=== PATIENT | male | born 1995 | race Caucasian/White ===

== ENCOUNTER 2017-08-25 17:47 | Inpatient (IN) | payer BC ==
[2017-08-25 21:11] LABS: #Basophils 0.1 thou/uL (0.0-0.2); #Lymphocytes 0.6 thou/uL (1.20-3.40); #Monocytes 0.3 thou/uL (0.11-0.59); #Neutrophils 13.9 thou/uL (1.40-6.50); %Basophils 0.5 % (0.0-1.0); %Eosinophils 0.1 % (0.0-10.0); %Lymphocytes 4.2 % (21.0-51.0); %Neutrophils 93.2 % (42.0-75.0); Hemoglobin 14.9 g/dL (14.0-18.0); Mean Corpuscular HGB CONC 33.1 g/dL (32.0-36.0); Mean Corpuscular Volume 90.7 fl (80.0-94.0); Mean Platelet Volume 6.5 fL (7.4-10.4); Platelet Count 367 thou/uL (130-400); RBC Distribution Width 11.9 % (11.5-14.5); Red Blood Cell (RBC) Count 4.96 mill/uL (4.70-6.10); White Blood Cell (WBC) Count 14.9 thou/uL (4.8-10.8)
[2017-08-25 21:27] LABS: ALT (SGPT) 32 U/L (8-55); AST (SGOT) 15 U/L (5-34); Alkaline Phosphatase 80 U/L (40-150); Anion Gap 14 mmol/L (10-20); BUN (Urea Nitrogen) 9 mg/dL (8.9-20.6); Bilirubin, Total 0.6 mg/dL (0.2-1.2); Calc. Creatinine Clearance 0 mL/min (70-130); Calcium 10.1 mg/dL (7.8-10.44); Carbon Dioxide 27 mmol/L (22-29); Chloride 98 mmol/L (98-107); Estimated GFR-MDRD Greater than 90; Glucose 118 mg/dL (70-105); Potassium 4.3 mmol/L (3.5-5.1); Sodium 135 mmol/L (136-145)
[2017-08-25] MEDS ORDERED: metroNIDAZOLE 500 MG in Premix Bag 1 BAG IVPB SCH (23:30)
[2017-08-26] MEDS ORDERED: Ondansetron ODT 4 MG TAB PO PRN (01:19)
[2017-08-26] MEDS ORDERED: Acetaminophen 325 MG TAB PO PRN (01:19)
[2017-08-26] MEDS ORDERED: Calcium Carbonate 500 MG ChewTAB PO PRN (01:19)
[2017-08-26] MEDS ORDERED: Ondansetron HCl/PF 4 MG/2 ML Vial IVP PRN (01:19)
[2017-08-26] MEDS ORDERED: Acetaminophen 650 MG Suppository PR PRN (01:19)
[2017-08-26] MEDS: Sodium Chloride 0.9% 1,000 ML IV SCH ×2 (02:01→16:20)
[2017-08-26 05:44] LABS: #Lymphocytes 0.7 thou/uL (1.20-3.40); #Monocytes 0.3 thou/uL (0.11-0.59); %Basophils 0.1 % (0.0-1.0); %Lymphocytes 5.5 % (21.0-51.0); %Monocytes 2.1 % (0.0-10.0); %Neutrophils 92.4 % (42.0-75.0); Hemoglobin 13.2 g/dL (14.0-18.0); Mean Corpuscular HGB CONC 33.7 g/dL (32.0-36.0); Mean Corpuscular Hemoglobin 30.2 pg (27.0-31.0); Mean Corpuscular Volume 89.6 fl (80.0-94.0); Mean Platelet Volume 6.6 fL (7.4-10.4); Platelet Count 299 thou/uL (130-400); RBC Distribution Width 11.8 % (11.5-14.5); Red Blood Cell (RBC) Count 4.38 mill/uL (4.70-6.10); White Blood Cell (WBC) Count 11.9 thou/uL (4.8-10.8)
--- NOTE | 2017-08-26 05:56 | HP-2 ---
DATE OF ADMISSION: 08/26/2017 CODE STATUS: FULL PRIMARY CARE PHYSICIAN: in [place]. ATTENDING: Kylee Qureshi M.D. RESIDENT: Dr. Alexis Mehta, PGY1. SPECIALIST: He sees Dr. Ton Post, GI. CHIEF COMPLAINT: Crohn's flare. HISTORY OF PRESENT ILLNESS: This is a 22-year-old that has been having a little bit of an acute Croh n's flare over the last month. He currently sees Dr. Post, who has been managing this for the last few years. Dr. Post said that he was on Remicade for a long time, but recently in March had been switched over to antiviral as the Remicade was no longer working for him. Over the last month, he i s kind of being getting worse, having a little bit increased pain with eating and having episodes of diarrhea. He had recently been put on prednisone over [place] break to help with the flare, it was helping some. He was not doing a whole lot over [place] break and lying down helped them. He rec ently increased prednisone about 2 weeks ago with helping some, but not much and then just last y was put on Flagyl and Cipro orally. He still has not been getting better. He is still passing gas , just yesterday had an episode of 7 loose stools. Denies any other chest pain, nausea, vomiting. D enies any constipation. Denies any other rashes, itching. Denies any shortness of breath. Denies a ny other symptoms at this time. REVIEW OF SYSTEMS: All review of systems not listed in the HPI, otherwise negative at this time. PAST MEDICAL HISTORY: Crohn's diagnosed back in 2008. PAST SURGICAL HISTORY: None. ALLERGIES: No known drug allergies. MEDICATIONS: Currently takes Entyvio, which is a monthly shot right now. He was taking prednisone. He is taking Flagyl and Cipro. FAMILY HISTORY: Dad has Crohn's. Mom insignificant. SOCIAL HISTORY: Occasionally smokes cigars, occasionally drinks alcohol. No illicit drug use. PHYSICAL EXAMINATION: VITAL SIGNS: Blood pressure is 131/85, pulse is 69, respirations 16. Temperature is 98.2, pulse ox is 97% on room air. Current weight is 54.43 kilograms. GENERAL: He is alert and oriented x3, well-developed, a little thin, appropriately interactive. HEENT: Conjunctivae within normal limits. NECK: Supple, no lymphadenopathy, no thyromegaly. CARDIOVASCULAR: Regular rate and rhythm, no murmurs, no gallops. Radial pulses, pedal pulses palpat ed bilaterally. RESPIRATORY: Normal breathing effort, no retractions. LUNGS: Clear to auscultation bilaterally. SKIN: Warm, dry, no rashes or lesions noted. ABDOMEN: Soft, nontender to palpation. Bowel sounds in all 4 quadrants. No masses or distention. EXTREMITIES: No edema, no pitting. MUSCULOSKELETAL: Structure within normal limits. Full range of motion. NEUROLOGIC: No focal neuro deficit. LABORATORY DATA: White blood cell count 14.9, hemoglobin 14.9, hematocrit 45, MCV is 90.7. He had 3 .2% bands, 93.2% neutrophils. Platelets were 367. Sodium is 135, potassium is 4.3, chloride was 98, bicarb was 27, BUN was 9, creatinine was 0.89, glucose was 118, calcium is 10.1, total protein 8.0, albumin 4.0, total bilirubin 0.6, AST 15, ALT 32, alkaline phosphatase 80. CRP was elevated 3.82. ASSESSMENT AND PLAN: 1. Acute Crohn's flare. We will give him IV Levaquin and IV Flagyl. We will give him IV Solu-Medro l at 20 mg q.8 hours. We will consult Dr. Post with Gastroenterology and we will follow his recomme ndations. We will give him Bentyl for gas pain. We will give him famotidine to help with any gastro esophageal reflux disease related pain. We will start him on a full liquid diet and advance the diet as tolerated. We will recheck CBC in the morning. We will get stool cultures and Clostridium diffi cile assay due to the diarrhea. Dr. Post recommended that we get imagings. We will get an abdomin al x-ray just to make sure there is no increased loop of bowel or dilated bowel at this time. We vega l continue to manage pain likely be there for a few days. 2. Deep venous thrombosis prophylaxis with the Lovenox.
[2017-08-26] MEDS: metroNIDAZOLE 500 MG in Premix Bag 1 BAG IVPB SCH ×3 (06:08→18:24)
[2017-08-26] MEDS: Enoxaparin Sodium 30 MG/0.3 ML SYRINGE SC SCH (09:16)
[2017-08-26] MEDS: Famotidine 20 MG TAB PO SCH ×2 (09:16→21:35)
[2017-08-26] MEDS: Dicyclomine 10 MG CAP PO SCH ×4 (09:16→21:35)
--- NOTE | 2017-08-26 09:16 | CON ---
DATE OF CONSULTATION: 08/26/2017 REASON FOR ADMISSION: Crohn's flare, not responding to outpatient therapy. HISTORY OF PRESENT ILLNESS: Mr. Silverman is a pleasant 22-year-old gentleman with a history of Crohn's disease, who was diagnosed about 2008. After a trial of and steroids, he was rapidly moved to Remicade and did quite well with this. More recently, he had been on 10 mg/kg every 6 weeks. He is having flaring symptoms. He underwent endoscopy in March of this year, and had a significant inflam mation in the terminal ileum, which was biopsied and showed mild active inflammation. The right colo n was fairly normal, the descending colon had some mild active inflammation in the sigmoid. He had n arrowing and stricturing with mild active inflammation on biopsy as well as in the rectum disea se. At that time we checked Remicade levels and antibodies. He had a very adequate level and no ant ibodies. It was deemed he was losing response to Remicade based on this being on maximal doses with good levels and active flaring. He was treated with a steroid taper and then we decided to go ahead and transfer over to [facility], which was started. He received 3 induction doses and then 2 months lat er an infusion. He was due for an infusion last week, but due to insurance changes after the first y ear, he has not received that yet. We saw him in the office last week. He was feeling worse, having more cramping at meals, which was stopping him from eating, because of the pain; it was in the lower abdomen. He was having diarrhea 5-7 times per day with scant blood. No perianal pain. No rectal p ain. He has had no rashes, myalgias, or arthralgias. We stopped his Remicade and moved to the [facility]. He did have a period of time over Thanksgiving when he had some sores on his legs. He went to [facility] with no findings noted or infections found; then ultimately these resolved. REVIEW OF SYSTEMS: Negative for fever, chills, myalgias, arthralgias, cough. He has lost some weigh t. He has got anorexia. He has had some diarrhea and lower abdominal cramping. He has no oral ulce rs. He has had no recent antibiotics or recent travel. He has had no sick contacts. MEDICATIONS AT HOME: Entyvio, prednisone 30 mg a day and last week placed him on Levaquin and Flagyl in the outpatient setting empirically to see if this would help. The goal of this was to bridge him towards the Entio is kicking in. Today, he called the office, was feeling worse with 7-8 bowel movements, threw up once, and was reall y not able to eat much and felt he had lost a few more pounds, and we decided to direct him to the [facility] for admission as it was after hours. PHYSICAL EXAMINATION: VITAL SIGNS: Blood pressure 136/91, temperature 98.2, pulse 87. GENERAL: He is thin, mildly cachectic, but does not appear grossly ill or septic. SKIN: Warm and dry. He has got strong pulses. His skin has good turgor. HEENT: Oropharynx without any lesions. Conjunctivae and sclerae are clear. Mild temporal wasting. NECK: Without any adenopathy. LUNGS: Clear. HEART: Regular rate and rhythm. ABDOMEN: Soft and scaphoid. There is mild tenderness in lower abdomen, but no palpable masses. The re is no rebound or guarding. There is no evidence of fistulas or fissures. Perianal exam reveals n o evidence of fistulas or fissures or abscess. MUSCULOSKELETAL: Joints are without erythema or redness. RECENT IMAGING: He had an MRI in March, which showed inflammation and mesenteric fat stranding arou nd the sigmoid colon without any overt obstruction. No evidence of fistulas or fissures. There is a ctive disease in the terminal ileum and the sigmoid descending colon. LABORATORY DATA: White count 14,000 today, hemoglobin was 14.9, platelet count 37. Differential nor mal. C-reactive protein 3.82, was 0.68 in 2015. Comprehensive metabolic profile was normal. ASSESSMENT: Crohn's disease flaring for past couple of months with recent transition to Entyvio. He has had induction doses and a 2-month followup dose, supposed to have another dose last week, but adame s not yet. He does not appear septic. He has no signs of bowel obstruction and is afebrile. He hein s, however, continue to lose weight and had some diarrhea about 7-8 times per day and had vomited tod ay. I suspect this is ongoing active Crohn's. PLAN: Plain films of the abdomen, IV Solu-Medrol 20 q.8, IV Levaquin and Flagyl. Stool for C. diffi cile and culture, and we will check a magnesium and phosphorus tomorrow as well. Hopefully, we will get some of his symptoms under control and get him out of the hospital within a few days. While he i s here, we will also prophylax for DVT with Lovenox and I talked with the residents, who are going to admit him and they are going to go ahead and get him a flu shot too since he has not had one and thi s is probably reasonable in light of the flu season we are having this year. Patient was given time to ask questions and answers were given. He understands and he felt at home that was just gett ing worse, and he seems to have failed outpatient treatment with antibiotics and prednisone. He has been recently induced with a biologic Entyvio.
--- NOTE | 2017-08-26 10:12 | RAD ---
ABDOMEN TWO VIEWS CHEST ONE VIEW: History: Crohn's flair. Comparison: None. FINDINGS: Lungs are clear. No pneumothorax or effusion. Cardiac silhouette and mediastinal contours are within normal limits. There is no free air under the hemidiaphragms. No dilated loops of large or small bowel. Skeleton is unremarkable. IMPRESSION: No acute abnormality. POS: H
--- NOTE | 2017-08-26 12:22 | PDOC.EVN ---
Event Note - Event Note Event Note: Case discussed with Dr. Mehta. Patient seen and examined with residents. History, physical, assessment and plan repeated by me and agree with resident's documentation. Breiefly, this is a 22 year old gentlemen with h/o Crohn's disease followed by Dr. Post. Sent to hospital due to worsening diarrhea, abdomainl pain and poor po intake. Patient had been seen by Dr. Post regularly and started having worsening symptoms for past month. Medications adjusted on outpatient basis including change from remicade to entyvio as well as antibiotics and steroids. Symptoms persisted and Dr. Post recommended hospitalization for IV hydration, IV abx and steroids. A/P: Crohn's flare- continue IV steroids, abx and hydration. Clear liquid diet.
--- NOTE | 2017-08-26 14:24 | PRG ---
DATE OF SERVICE: 08/26/2017 SUBJECTIVE: Mr. Silverman feels a little stronger than he did yesterday. He is still has some lower dis comfort when he eats and some cramping with bowel movements. He has had no bleeding, no fever, no vo miting. OBJECTIVE: VITAL SIGNS: Temperature is 98, pulse 73 and blood pressure 121/76. GENERAL: He is thin. LUNGS: Clear. HEART: Regular rate and rhythm. ABDOMEN: Soft, scaphoid and mildly tender. LABORATORY STUDIES: White count 11.9 down from 14.9 yesterday, hemoglobin 13.2 and platelet count 29 9. CRP was 3.82. Stool was negative for C. difficile culture and Shiga toxin negative. ASSESSMENT: Crohn disease as outlined in the consult last night. Flaring, has been switched to Enty bill. We missed shot last week, hopefully we are going to get that straightened out with his [employer]. Apparently, there was a change in his insurance coverage after the first year. PLAN: 1. Continue IV Solu-Medrol, Levaquin, and Flagyl. 2. Low residue diet. 3. If not improving, consider MRI enterography tomorrow.
[2017-08-27] MEDS: metroNIDAZOLE 500 MG in Premix Bag 1 BAG IVPB SCH ×5 (00:07→23:50)
[2017-08-27] MEDS: Sodium Chloride 0.9% 1,000 ML IV SCH ×2 (06:14→08:53)
--- NOTE | 2017-08-27 06:24 | PDOC.FM ---
- Subjective Subjective: Patient states overall he is improved. He still is not taking in much food or water orally. He still complains of pain when eating, but it isn't severe. He also describes multiple episodes of bloody, watery diarrhea. He states that the pain is improved, but still present. He specifically denies chest pain, sob, n/v , fever, or chills. He is tolerating the medications well and improving. He has no other complaints this morning. - Objective Vital Signs & Weight: Vital Signs (12 hours) Temp Pulse Resp BP Pulse Ox 08/26/17 20:13 98.4 F 69 18 122/70 97 Weight Weight 54.4 kg I&O: 08/25/17 08/26/17 08/27/17 06:59 06:59 06:59 Intake Total 306 2676 Balance 306 2676 Result Diagrams: 08/26/17 05:21 08/25/17 20:47 <Carlos Jon - Last Filed: 08/27/17 08:32> - Objective Vital Signs & Weight: Vital Signs (12 hours) Temp Pulse Resp BP 08/27/17 11:29 98.0 F 75 20 139/82 08/27/17 08:00 98.2 F 66 20 08/27/17 07:56 98.2 F 66 20 117/71 Weight Weight 54.4 kg I&O: 08/26/17 08/27/17 08/28/17 06:59 06:59 06:59 Intake Total 306 2676 Balance 306 2676 Result Diagrams: 08/26/17 05:21 08/25/17 20:47 <Kylee Qureshi - Last Filed: 08/27/17 11:34> Phys Exam - Physical Examination Constitutional: NAD HEENT: moist MMs Neck: no nodes, supple Respiratory: no wheezing, clear to auscultation bilateral Cardiovascular: RRR, no significant murmur Gastrointestinal: soft, no distention, positive bowel sounds Tenderness over entire abdomen, Dull pain Musculoskeletal: no edema, pulses present Neurological: non-focal, normal sensation, moves all 4 limbs Lymphatic: no nodes Psychiatric: normal affect, A&O x 3 Skin: no rash <Carlos Jon - Last Filed: 08/27/17 08:32> Dx/Plan (1) Crohn's colitis Code(s): K50.10 - CROHN'S DISEASE OF LARGE INTESTINE WITHOUT COMPLICATIONS Status: Acute QualifierTitle: Digestive disease complication type: with rectal bleeding Qualified Code(s): K50.111 - Crohn's disease of large intestine with rectal bleeding - Plan Plan: 1. Crohn's Flare - Dr. Post, GI, appreciate his recs - Continue pain management - Continue IV hydration until tolerating PO - Continue Antibiotics - Continue Steroids - Patient states he is improving, but pain and appetite not back to normal Disposition: Stable, will continue current plan of care. <Carlos Jon - Last Filed: 08/27/17 08:32> Attending Addendum - Attending Addendum I personally evaluated the patient and discussed the management with Dr. Jon I agree with the History, Examination, Assessment and Plan documented above with any addition or exceptions noted below- Patient states that pain and frequency of bowel movments is better. Tolerated breakfast today well. Afebrile VSS. A/P: 1) Crohn's flare - improving; continue IV steroids, abx. Stool culture and C. diff negative; Plans as per GI. <Kylee Qureshi - Last Filed: 08/27/17 11:34>
[2017-08-27] MEDS: Dicyclomine 10 MG CAP PO SCH ×4 (08:51→21:23)
[2017-08-27] MEDS: Famotidine 20 MG TAB PO SCH ×2 (08:51→21:23)
[2017-08-27] MEDS: Enoxaparin Sodium 30 MG/0.3 ML SYRINGE SC SCH (08:52)
--- NOTE | 2017-08-27 12:06 | PRG ---
DATE OF SERVICE: 08/27/2017 SUBJECTIVE: He is better today. Yesterday he had a little bit of blood in his stool and was having some cramping, but today his cramping is a bit better. His mother is here with him today. She had m any questions about his course and our plans for treatment which we discussed. She is well-versed in the disease. He denies any fever or chills, denies any vomiting. Denies any pain presently. MEDICATIONS: He is on Tylenol, Lovenox, Pepcid, levofloxacin, metronidazole and Solu-Medrol 20 IV q. 8h. PHYSICAL EXAMINATION: GENERAL: The patient is resting in bed. VITAL SIGNS: Temperature is 98.2, respirations 20, pulse 66, blood pressure 117/71. ABDOMEN: Scaphoid and nontender. HEENT: Oropharynx without any thrush. LUNGS: Clear. HEART: Regular rate and rhythm. LABORATORY STUDIES: None. ASSESSMENT: Crohn's since 2008 long-term clinical remission on Remicade, which he lost late summer, early fall. This was noted both endoscopically and radiographically. He has been switched to Entyvi o and started the process. He is overdue 1 week for his second 8 week shot. I talked to my office t miya, they are going to talk to the infusion center about expediting getting that going. Overall, he feels a little bit better today. We will continue on the IV steroids and antibiotics and observe. If we plateau out at a point where he is still having pain with eating we will reimage his abdomen with MR enterography; however, he has only been on 48 hours of IV steroids at this time and if we can get him through this slight flare and get him to his next Entyvio dose, I think that will be best. The risks, benefits of this plan discussed with the patient and his mother who agree and wi ll continue.
[2017-08-27] MEDS ORDERED: Sodium Chloride 0.9% 10 ML ONE (21:12)
[2017-08-28] MEDS: Sodium Chloride 0.9% 1,000 ML IV SCH ×2 (02:36→22:08)
[2017-08-28] MEDS: metroNIDAZOLE 500 MG in Premix Bag 1 BAG IVPB SCH ×3 (06:08→17:54)
--- NOTE | 2017-08-28 06:30 | PDOC.FM ---
- Subjective Subjective: Patient is overall unchanged from yesterday. He states that he has had less BMs , but the ones he has still has blood in them. He also states he is having pain after eating, but he is able to tolerate PO. His mother states he had significantly more pain yesterday afternoon than the day previously and she suspects it was because he was eating more. Dr. Post is trying to line up his infusion of Entyvio to be sooner to hopefully get him back on track. He denies n /v, fevers, chills, or coughs. No other concerns this morning. - Objective Vital Signs & Weight: Vital Signs (12 hours) Temp Pulse Resp BP 08/27/17 19:40 98.2 F 67 18 122/68 Weight Weight 54.4 kg I&O: 08/26/17 08/27/17 08/28/17 06:59 06:59 06:59 Intake Total 306 2676 2768 Balance 306 2676 2768 Result Diagrams: 08/26/17 05:21 08/25/17 20:47 <Carlos Jon - Last Filed: 08/28/17 08:32> - Objective Vital Signs & Weight: Vital Signs (12 hours) Temp Pulse Resp BP 08/28/17 07:35 98.2 F 80 20 151/66 H 08/28/17 07:32 98.2 F 67 20 Weight Weight 54.4 kg I&O: 08/27/17 08/28/17 08/29/17 06:59 06:59 06:59 Intake Total 2676 2768 Balance 2676 2768 Result Diagrams: 08/26/17 05:21 08/25/17 20:47 <Kylee Qureshi - Last Filed: 08/28/17 17:43> Phys Exam - Physical Examination HEENT: PERRLA, moist MMs Neck: no nodes, no JVD Respiratory: no wheezing, clear to auscultation bilateral Cardiovascular: RRR, no significant murmur, no rub, gallop Gastrointestinal: soft, non-tender, no distention, positive bowel sounds No rebound or guarding present. Musculoskeletal: no edema, pulses present Neurological: non-focal, normal sensation, moves all 4 limbs Lymphatic: no nodes Psychiatric: normal affect, A&O x 3 Skin: no rash <Carlos Jon - Last Filed: 08/28/17 08:32> Dx/Plan (1) Crohn's colitis Code(s): K50.10 - CROHN'S DISEASE OF LARGE INTESTINE WITHOUT COMPLICATIONS Status: Acute QualifierTitle: Digestive disease complication type: with rectal bleeding Qualified Code(s): K50.111 - Crohn's disease of large intestine with rectal bleeding - Plan Plan: 1. Crohn's Flare - Dr. Post, GI, appreciate his recs - Continue pain management - Continue IV hydration until tolerating PO - Continue Antibiotics - Continue Steroids - Stool cultures negative - Patient states he is unchanged but pain and appetite not back to normal - Will discuss with Dr. Post about repeat imaging. - Coordinating for his Entyvio dose. Disposition: Stable, will continue current plan of care. <Carlos Jon - Last Filed: 08/28/17 08:32> Attending Addendum - Attending Addendum I personally evaluated the patient and discussed the management with Dr. Jon I agree with the History, Examination, Assessment and Plan documented above with any addition or exceptions noted below- Patient had some increased pain yesterday afternoon and evening. Tolerating po but pain worse with eating. Afebrile VSS A/P: 1) Crohn's disease flare- slowly improving; continue current meds; plan for MR enterography per Dr. Post' recommendation. <Kylee Qureshi - Last Filed: 08/28/17 17:43>
[2017-08-28] MEDS: Famotidine 20 MG TAB PO SCH ×2 (08:49→21:01)
[2017-08-28] MEDS: Dicyclomine 10 MG CAP PO SCH ×4 (08:49→21:01)
[2017-08-28] MEDS: Enoxaparin Sodium 30 MG/0.3 ML SYRINGE SC SCH (08:50)
--- NOTE | 2017-08-28 14:48 | PRG ---
DATE OF SERVICE: 08/28/2017 HISTORY: Mr. Silverman is feeling about the same. He still gets some pain after eating. It is not bad and he will eat, but he does not really feel any different than when he came in, although he is havin g no further vomiting. PHYSICAL EXAMINATION: VITAL SIGNS: Temperature is 98, pulse 80, blood pressure 151/66. GENERAL: The patient is sitting in a wheelchair going downstairs for his MRI enterography. LABORATORY: None. ASSESSMENT: Crohn's disease as outlined above, postprandial pain, persists, concern for active disea se and was recently switched from Remicade to Entyvio. PLAN: Await MRCP, will repeat labs tomorrow and hopefully get him back to the [facility] to get his Entyvio soon.
--- NOTE | 2017-08-28 19:18 | MRI ---
MRI ABDOMEN WITH AND WITHOUT CONTRAST MRI ENTEROGRAPHY: COMPARISON: MRI 04/04/17. FINDINGS: There is mild hyperenhancement of the mucosa of the terminal ileum with submucosal edema and wall thi ckening. This is similar to a comparison to a comparison examination. There is mild increased mesen teric fat of the sigmoid colon with hyperemia. No fistula. No abscess or sinus tract. No significant free fluid. Motion artifact limits evaluation of the left lobe of the liver. The marrow signal appears unremarkable. No hydronephrosis. Pancreas and spleen are unremarkable. Main portal vein is patent. IMPRESSION: 1. Uncomplicated Crohn's disease involving the terminal ileum with hyperenhancement of the terminal ileum as well as the sigmoid colon. 2. Size decrease mesorectal likely improving inflammation. POS: LILY
[2017-08-29] MEDS: metroNIDAZOLE 500 MG in Premix Bag 1 BAG IVPB SCH ×3 (00:30→12:55)
[2017-08-29 05:41] LABS: #Lymphocytes 0.6 thou/uL (1.20-3.40); #Monocytes 0.8 thou/uL (0.11-0.59); %Basophils 0.2 % (0.0-1.0); %Eosinophils 0.1 % (0.0-10.0); %Lymphocytes 5.2 % (21.0-51.0); %Monocytes 6.3 % (0.0-10.0); %Neutrophils 88.3 % (42.0-75.0); Hemoglobin 12.8 g/dL (14.0-18.0); Mean Corpuscular HGB CONC 31.9 g/dL (32.0-36.0); Mean Corpuscular Hemoglobin 28.6 pg (27.0-31.0); Mean Corpuscular Volume 89.8 fl (80.0-94.0); Mean Platelet Volume 7.1 fL (7.4-10.4); Platelet Count 300 thou/uL (130-400); RBC Distribution Width 11.9 % (11.5-14.5); Red Blood Cell (RBC) Count 4.49 mill/uL (4.70-6.10); White Blood Cell (WBC) Count 12.4 thou/uL (4.8-10.8)
[2017-08-29 06:04] LABS: Anion Gap 10 mmol/L (10-20); BUN (Urea Nitrogen) 12 mg/dL (8.9-20.6); Calc. Creatinine Clearance 131 mL/min (70-130); Calcium 8.6 mg/dL (7.8-10.44); Carbon Dioxide 25 mmol/L (22-29); Chloride 106 mmol/L (98-107); Estimated GFR-MDRD Greater than 90; Glucose 106 mg/dL (70-105); Lipase 6 U/L (8-78); Potassium 4.1 mmol/L (3.5-5.1); Sodium 137 mmol/L (136-145)
--- NOTE | 2017-08-29 06:33 | PDOC.FM ---
- Subjective Subjective: Patient states he had a better night. He states that he has had only 2 bouts of diarrhea in the last 24 hours and has not had blood in it. He describes they have still been looser than normal, but getting more formed. He states he no longer has pain after eating either. He states he feels he is staying well hydrated and is definitely better. He denies chest pain, sob, n/v, fevers, or chills. He has no other concerns at this time. - Objective Vital Signs & Weight: Vital Signs (12 hours) Temp Pulse Resp BP 08/29/17 04:20 98.1 F 60 16 123/76 08/28/17 19:55 98.2 F 65 18 138/83 Weight Weight 54.4 kg I&O: 08/27/17 08/28/17 08/29/17 06:59 06:59 06:59 Intake Total 2676 2768 2628 Balance 2676 2768 2628 Result Diagrams: 08/29/17 05:29 08/29/17 05:29 <Carlos Jon - Last Filed: 08/29/17 08:47> - Objective Vital Signs & Weight: Weight Weight 54.4 kg Result Diagrams: 08/29/17 05:29 08/29/17 05:29 <Kylee Qureshi - Last Filed: 09/01/17 14:51> Phys Exam - Physical Examination HEENT: PERRLA, moist MMs Neck: no nodes, no JVD Respiratory: no wheezing, clear to auscultation bilateral Cardiovascular: RRR, no significant murmur Gastrointestinal: soft, non-tender, no distention, positive bowel sounds Musculoskeletal: no edema, pulses present Neurological: non-focal, normal sensation, moves all 4 limbs Lymphatic: no nodes Psychiatric: normal affect, A&O x 3 Skin: no rash <Carlos Jon - Last Filed: 08/29/17 08:47> Dx/Plan (1) Crohn's colitis Code(s): K50.10 - CROHN'S DISEASE OF LARGE INTESTINE WITHOUT COMPLICATIONS Status: Acute QualifierTitle: Digestive disease complication type: with rectal bleeding Qualified Code(s): K50.111 - Crohn's disease of large intestine with rectal bleeding - Plan Plan: 1. Crohn's Flare - Dr. Post, GI, appreciate his recs - Continue pain management - D/C fluids this AM. Will monitor PO intake - Continue Antibiotics - Continue Steroids - Stool cultures negative - Patient states he is unchanged but pain and appetite not back to normal - MRI enterography shows improving inflammation in TI and sigmoid colon - Coordinating for his Entyvio dose. Disposition: Stable, will continue current plan of care. <Carlos Jon - Last Filed: 08/29/17 08:47> Attending Addendum - Attending Addendum I personally evaluated the patient and discussed the management with Dr. Jon I agree with the History, Examination, Assessment and Plan documented above with any addition or exceptions noted below- Patient feeling better. Abdominal pain mostly resolved. Tolerating regular diet. Decreased frequency of diarrhea and no blood seen in stools. Afebrile VSS. A/P: 1) Crohn's flare- improved; plan to d/c home if ok with GI. <Kylee Qureshi - Last Filed: 09/01/17 14:51>
[2017-08-29] MEDS: Dicyclomine 10 MG CAP PO SCH ×2 (08:12→12:59)
[2017-08-29] MEDS: Famotidine 20 MG TAB PO SCH (08:12)
[2017-08-29] MEDS: Enoxaparin Sodium 30 MG/0.3 ML SYRINGE SC SCH (08:13)
[2017-08-29 08:29] VITALS: TEMP 98.4
[2017-08-29 08:31] VITALS: BP 145/82
--- NOTE | 2017-08-29 18:39 | PRG ---
DATE OF SERVICE: 08/29/2017 SUBJECTIVE: Mr. Silverman feels much better today. He is without pain. He has no fever, chills or vomi ting. He feels he is probably ready to go home. OBJECTIVE: VITAL SIGNS: Temperature is 98.4, pulse 56, blood pressure 145/82. ABDOMEN: Soft, nontender. LUNGS: Clear. LABORATORY STUDIES: His white count 12.4, hemoglobin 12.8, platelet count 300, basic metabolic profi le normal, lipase is 6. MRI abdomen enterography is notable for some mild inflammation of the ileum and in the sigmoid colon. The radiologist felt the area of the mesorectum appeared less inflamed and the Radiology thought that this was reflected improvement in the appearance versus MRI on 04/04/2017 . ASSESSMENT: Crohn's with recent transition from Remicade to Entyvio. He is due for his next infusio n last week, which he missed, but he had been having some mild flare in symptoms with transition from Remicade to Entyvio before that. Overall, he is little bit better. He is having no pain with eatin g now. PLAN: We will discharge him home to continue the steroids of 40 mg daily. Levaquin and Flagyl, we w ill finish those over the next 7 days. He will follow up in my office next week to see if we can hel p and get his Entyvio approved by insurance, so he can get his 4th infusion.
--- NOTE | 2017-08-30 02:45 | DIS-2 ---
DATE OF ADMISSION: 08/25/2017 DATE OF DISCHARGE: 08/29/2017 RESIDENT: Carlos Jon MD ADMITTING ATTENDING: Lai Mazariegos MD DISCHARGE ATTENDING: Kylee Qureshi M.D. CONSULTATIONS: Consults were with Gastroenterology and Dr. Ton Post. PROCEDURES: The patient underwent an acute abdominal series on 08/26/2017 showed no acute abnormality. The patient also underwent an abdominal MRI on 08/28/2017 showed an uncomplicated Crohn's disease involving the terminal ileum with hyperenhancement of the terminal ileum as well as the sigmoid colon likely improving inflammation. PRIMARY DIAGNOSIS: Crohn's disease flare. DISCHARGE MEDICATIONS: 1. Ciprofloxacin 500 mg b.i.d. 2. Metronidazole 500 mg t.i.d. 3. Prednisone 40 mg daily. DISCONTINUED MEDICATIONS: Prednisone 10 mg. HISTORY OF PRESENT ILLNESS AND HOSPITAL COURSE: This patient is a 22-year-old male, who has been having a little bit of an acute Crohn's flare over the last month. He currently sees Dr. Post, who has been managing this for the last few years. Dr. Post said that he was on Remicade for a long time, but recently in March had been switched over to an antiviral as Remicade was no longer working for him. Over the last month, he has kind of been getting worse , having a little bit of increased pain with eating and having episodes of diarrhea. He has recently been put on prednisone over Bedias break to help with the flare, it was helping some. He was not doing a whole lot of Zelda break and lying down helped. He recently increased prednisone about 2 weeks ago with some help, but not much and then just last Friday was put on Flagyl and Cipro orally. He still has not been getting better. He still is passing gas just yesterday and an episode of 7 loose stools. He denies any other chest pain, nausea or vomiting. He denies any constipation. He denies any rashes or itching. Denies shortness of breath. He also denies any other symptoms at this time. During this hospitalization, the patient was evaluated by Dr. Post for the acute flare and said that he had been managed him with the Cipro, Flagyl and the prednisone, which are not doing it for him and he needs to make it to his next Entyvio infusion, which is the new antiviral medication for this disease. There is some mixup with his insurance and so he should likely get that very soon after discharge. The patient had some notable lab values during this hospitalization of a white blood cell count that was 14.9 on day of admission and 12.4 on day of discharge, no other lab abnormalities. The patient also was afebrile during the entire hospitalization, did have some episodes of hypertension as high as 151 systolic that we attribute to painful episodes. We did not elect to treat at this time as it was in the acute phase, but he will follow up for this as an outpatient if he needs to be treated further for hypertension. The patient was continued to have pain especially after eating and with bowel movements and so he underwent an abdominal MRI enterography to make sure that he did not have any further strictures or possible obstructions from this disease. The patient otherwise was tolerating the IV steroids, the diet in the hospital as well as the antibiotics. This patient continued to have bloody loose stools up until the day before discharge. The stools became more formed, had no blood in them and had decreased pain. The patient also no longer had pain while eating on day of discharge and at that time Dr. Post had determined that he will be able to be discharged from the hospital with close follow up in his clinic. The patient otherwise had no other complications. He will be discharged in appropriate condition. DISPOSITION: Stable. DISCHARGE INSTRUCTIONS: LOCATION: He will be discharged home under the care of himself. DIET: Diet will be as tolerated with no restrictions. ACTIVITY: Activity will be as tolerated with no restrictions. FOLLOWUP: Follow up will be with Dr. Post on Friday09/01/2017 to discuss further management of his Crohn's disease. We wish this orion the best of luck and hope he has no further complications from this disease. REG
== END 2017-08-29 15:06 | disposition home or self-care (01) | DRG 387 ==
LOC: ERS 17:47 → 3SE 08-26 01:06
PROVIDERS: ADMIT Emergency Medicine; ATTEND Emergency Medicine
DX: K50.111 Crohn's disease of large intestine with rectal bleeding (principal); F17.290 Nicotine dependence, other tobacco product, uncomplicated
CPT/HCPCS: 36415; 74022; 74183; 80048; 80053; 83690; 85025; 86140; 87045; 87046; 87324; 87449; 87899; 96365; 96368; 96375; A4216; J1610; J1650; J1956; J2405; J2920

== ENCOUNTER 2017-11-28 11:26 | Outpatient (CLI) | payer BC ==
[2017-11-28 12:51] LABS: #Eosinphils 0.1 thou/uL (0.0-0.7); #Monocytes 1.3 thou/uL (0.11-0.59); #Neutrophils 10.4 thou/uL (1.40-6.50); %Basophils 0.4 % (0.0-1.0); %Eosinophils 0.5 % (0.0-10.0); %Lymphocytes 14.4 % (21.0-51.0); %Monocytes 9.1 % (0.0-10.0); %Neutrophils 75.6 % (42.0-75.0); Hemoglobin 12.7 g/dL (14.0-18.0); Mean Corpuscular HGB CONC 31.5 g/dL (32.0-36.0); Mean Corpuscular Hemoglobin 27.5 pg (27.0-31.0); Mean Corpuscular Volume 87.4 fl (80.0-94.0); Mean Platelet Volume 6.7 fL (7.4-10.4); Platelet Count 488 thou/uL (130-400); RBC Distribution Width 11.5 % (11.5-14.5); Red Blood Cell (RBC) Count 4.61 mill/uL (4.70-6.10); White Blood Cell (WBC) Count 13.7 thou/uL (4.8-10.8)
[2017-11-28 13:05] LABS: Hemoglobin A1c 5.2 % (4.0-6.0)
[2017-11-28 13:11] LABS: Anion Gap 15 mmol/L (10-20); BUN (Urea Nitrogen) 13 mg/dL (8.9-20.6); Calc. Creatinine Clearance 0 mL/min (70-130); Calcium 9.6 mg/dL (7.8-10.44); Carbon Dioxide 25 mmol/L (22-29); Chloride 102 mmol/L (98-107); Estimated GFR-MDRD Greater than 90; Glucose 73 mg/dL (70-105); Potassium 3.6 mmol/L (3.5-5.1); Sodium 138 mmol/L (136-145)
== END 2017-11-28 11:27 | disposition home or self-care (01) ==
LOC: LABBT 11:26
PROVIDERS: ATTEND Surgery
DX: Z01.812 Encounter for preprocedural laboratory examination (principal); K50.90 Crohn's disease, unspecified, without complications
CPT/HCPCS: 80048; 83036; 85025

== ENCOUNTER 2017-11-28 13:00 | Inpatient (IN) | payer BC ==
[2017-12-01] MEDS ORDERED: cefOXitin 2 GM in Sodium Chloride 0.9% 100 ML IVPB SCH (12:15)
[2017-12-01] MEDS ORDERED: Midazolam HCl 2 mg/2 ml Vial ONE ×3 (12:44→13:33)
[2017-12-01] MEDS ORDERED: Fentanyl 100 MCG/2 ML VIAL ONE ×3 (12:44→16:28)
[2017-12-01] MEDS ORDERED: Dexamethasone 4 mg/ml Vial ONE (12:46)
[2017-12-01] MEDS ORDERED: Ondansetron ODT 4 MG TAB ONE (13:05)
[2017-12-01] MEDS ORDERED: Indocyanine Green 25 MG/10 ML VIAL ONE ×2 (13:07→13:27)
[2017-12-01] MEDS ORDERED: Bupivacaine/Epinephrine 0.25% 30 ML VIAL ONE ×2 (13:07→15:36)
[2017-12-01] MEDS ORDERED: Fentanyl 250 MCG/5 ML VIAL ONE (13:33)
[2017-12-01] MEDS ORDERED: Glycopyrrolate 0.2 MG/ML 5 ML SYRINGE ONE (14:07)
[2017-12-01] MEDS ORDERED: Lidocaine 1% PF 5 ML VIAL ONE (14:07)
[2017-12-01] MEDS ORDERED: Hydrocortisone Sod Succ/PF 100 mg/2 ml Vial ONE (14:07)
[2017-12-01] MEDS ORDERED: PROPOFOL 200 MG/20 ML VIAL ONE (14:07)
[2017-12-01] MEDS ORDERED: Bupivacaine HCl 0.5%/Epinephrine 1:200,000/PF 30 ml Vial ONE (15:32)
[2017-12-01] MEDS ORDERED: Meperidine HCl/PF 25 MG/ML VIAL ONE (15:52)
[2017-12-01] MEDS ORDERED: Ondansetron HCl/PF 4 MG/2 ML Vial IVP PRN ×2 (16:23→17:53)
[2017-12-01] MEDS ORDERED: Promethazine HCl 25 MG/ML VIAL SLOW IVP PRN (16:23)
[2017-12-01] MEDS ORDERED: Promethazine HCl 25 MG/ML VIAL IM PRN ×2 (16:23→17:53)
[2017-12-01 17:34] VITALS: BMI 15.7
[2017-12-01] MEDS ORDERED: hydrALAZINE 20 MG/ML VIAL SLOW IVP PRN (17:53)
[2017-12-01] MEDS ORDERED: Fentanyl 100 MCG/2 ML VIAL SLOW IVP PRN ×2 (17:53)
--- NOTE | 2017-12-01 17:53 | OP ---
DATE OF PROCEDURE: 12/01/2017 PREOPERATIVE DIAGNOSIS: Crohn's disease with ileocecal stricture and resultant chronic bowel obstruc tion. POSTOPERATIVE DIAGNOSIS: Crohn's disease with ileocecal stricture and resultant chronic bowel obstru ction. PROCEDURE: Laparoscopic right colectomy with ileocolonic anastomosis, da Marco robot. SURGEON: Andrade Sloan M.D. ANESTHESIA: General. ESTIMATED BLOOD LOSS: Minimal. COMPLICATIONS: None. SPECIMEN: Ileocecal specimen. TECHNIQUE: The patient was taken to the operating room and placed supine on the table. After genera l anesthetic was obtained, a Daugherty was placed. The patient had undergone tap blocks in the preop [facility] [facility] area by Anesthesia. His abdomen is prepped and draped in a sterile fashion. Left subcostal 11 mm Optiview trocar placed in the usual fashion and high-flow pneumoperitoneum was obtained. The robo t 8 mm camera port is placed just to the left of the umbilicus. The 11 mm subcostal port switched ou t to the robot stapler port 11 mm trocar was placed in the left upper lateral abdomen, 8 mm robot ass ist port is placed in the left lower quadrant. The patient was placed in Trendelenburg position and rolled to his left. All ports are docked to the robot. Surgeon goes to the console. The colon was lifted up to expose its medial mesentery. The peritoneum is incised using the cautery. The ileoceca l vessels were exposed at the base of the mesentery, window was made around them circumferentially. The robot vessel sealer was used to take the vessel slow. Cautery was then used to dissect in the re troperitoneal space behind the cecum. The ureter was found and excluded from the dissection all the way to the peritoneal reflection, right colon is mobilized along the right line of Toldt up towards t he right upper quadrant. The duodenum was found and left down and excluded from the dissection. Dis section performed circumferentially around the small bowel proximal to the terminal ileum and then ci rcumferentially around the proximal transverse colon, there was significant disease at the ileocecal valve of the colon. However, just proximal to this approximately 3 inches proximal. There was no si gnificant Crohn's disease. Robot stapler was fired across the small intestine in this location. A r eload is fired across the proximal transverse colon. The small bowel is able to be brought up agains t the proximal transverse colon in an isoperistaltic antimesenteric fashion. Holding stitch of Vicry l was used to hold the small bowel and colon together. Enterotomy was made on each on the antimesent mónica surface and a robot stapler was used to form the anastomosis. The common enterotomy was closed using a running 2-0 Vicryl in two layers. ICG green dye had been given and immunofluorescence reveal ed there to be good uptake in this area before and after anastomosis. The subcostal robot stapler po rt was infiltrated using local anesthetic. The fascial defect in this area was closing GraNee needle 0 Vicryl tie. All other port sites are removed under direct visualization without bleeding. Muscle splitting incision is made in the right lower quadrant at McBurney's point and the Tee wound retr actor was placed, allowing the colon specimen brought out through this wound. This fascial defect is closed anterior and posteriorly using PDS suture. All incisions and subcutaneous tissues are irriga waqas using sterile solution and all wounds are closed using 4-0 Monocryl and Dermabond. The patient e n route to recovery in stable condition. All instrument counts, needle counts, lap counts are correc t.
[2017-12-01] MEDS ORDERED: Hydrocortisone Sod Succ/PF 100 mg/2 ml Vial IVP SCH (18:00)
[2017-12-01] MEDS: D5 1/2 NS w/20 mEq KCL 1,000 ML IV SCH ×2 (18:59→21:49)
[2017-12-01] MEDS: Acetaminophen 1,000 MG in Premix Bag 1 BAG IVPB SCH ×2 (19:02→23:53)
[2017-12-01] MEDS: Enoxaparin Sodium 40 MG/0.4 ML SYRINGE SC SCH (21:51)
[2017-12-01] MEDS: cefOXitin Sodium 1 GM, Syringe 0.5 ML in Sterile Water 10 ML SLOW IVP SCH (21:54)
[2017-12-01] MEDS: Famotidine 20 MG TAB PO SCH (21:57)
[2017-12-01] MEDS: Famotidine/PF 20 mg/2ml Vial SLOW IVP SCH (21:58)
[2017-12-01] MEDS ORDERED: cefOXitin Sodium 1 GM in Sodium Chloride 0.9% 100 ML IVPB SCH (22:00)
[2017-12-01] MEDS: Hydrocortisone Sod Succ/PF 100 mg/2 ml Vial IVP SCH (22:03)
[2017-12-01] MEDS: Ketorolac Tromethamine 30 MG/ML VIAL IVP PRN (22:05)
[2017-12-02] MEDS: Ketorolac Tromethamine 30 MG/ML VIAL IVP PRN ×3 (04:21→16:29)
[2017-12-02 04:40] LABS: #Lymphocytes 0.9 thou/uL (1.20-3.40); #Monocytes 0.6 thou/uL (0.11-0.59); #Neutrophils 11.4 thou/uL (1.40-6.50); %Eosinophils 0.1 % (0.0-10.0); %Lymphocytes 6.8 % (21.0-51.0); %Monocytes 4.4 % (0.0-10.0); %Neutrophils 88.7 % (42.0-75.0); Hemoglobin 10.8 g/dL (14.0-18.0); Mean Corpuscular Hemoglobin 28.4 pg (27.0-31.0); Mean Corpuscular Volume 88.7 fl (80.0-94.0); Platelet Count 377 thou/uL (130-400); RBC Distribution Width 11.9 % (11.5-14.5); Red Blood Cell (RBC) Count 3.81 mill/uL (4.70-6.10); White Blood Cell (WBC) Count 12.9 thou/uL (4.8-10.8)
[2017-12-02 04:59] LABS: Anion Gap 5 mmol/L (10-20); BUN (Urea Nitrogen) 6 mg/dL (8.9-20.6); Calc. Creatinine Clearance 108 mL/min (70-130); Calcium 8.6 mg/dL (7.8-10.44); Carbon Dioxide 32 mmol/L (22-29); Chloride 104 mmol/L (98-107); Estimated GFR-MDRD Greater than 90; Glucose 146 mg/dL (70-105); Potassium 4.3 mmol/L (3.5-5.1); Sodium 137 mmol/L (136-145)
[2017-12-02] MEDS: Hydrocortisone Sod Succ/PF 100 mg/2 ml Vial IVP SCH ×3 (05:41→21:29)
[2017-12-02] MEDS: Acetaminophen 1,000 MG in Premix Bag 1 BAG IVPB SCH ×2 (05:41→13:26)
[2017-12-02] MEDS: cefOXitin Sodium 1 GM, Syringe 0.5 ML in Sterile Water 10 ML SLOW IVP SCH (05:41)
[2017-12-02] MEDS ORDERED: HYDROcodone/Acetaminophen 5/325 mg Tablet PO PRN ×2 (08:15)
[2017-12-02] MEDS ORDERED: D5 1/2 NS w/20 mEq KCL 1,000 ML IV SCH (08:16)
[2017-12-02] MEDS: Famotidine 20 MG TAB PO SCH ×2 (08:19→21:29)
--- NOTE | 2017-12-02 08:19 | PDOC.GSPN ---
Surgery Progress Note: Subj - Subjective Patient reports: tolerating liquids well, voiding w/o difficulty Narrative: POD 1 right colectomy, Surgery Progress Note: Obj - Vital signs Vital signs: Vital Signs - Most Recent Temp Pulse Resp BP Pulse Ox 98 F 64 16 104/65 97 12/02/17 04:00 12/02/17 04:00 12/02/17 04:00 12/02/17 04:00 12/02/17 04:00 - Physical Exam General: no distress Respiratory: clear to auscultation Abdomen: soft, appropriately tender Wound: healing well Surgery Progress Note: Results - Labs Result Diagrams: 12/02/17 03:41 12/02/17 03:41 Lab results: Laboratory Results - last 24 hr 12/02/17 12/02/17 03:41 03:41 WBC 12.9 H RBC 3.81 L Hgb 10.8 L Hct 33.8 L MCV 88.7 MCH 28.4 MCHC 32.0 RDW 11.9 Plt Count 377 MPV 7.0 L Neutrophils % 88.7 H Lymphocytes % 6.8 L Monocytes % 4.4 Eosinophils % 0.1 Basophils % 0.0 Neutrophils # 11.4 H Lymphocytes # 0.9 L Monocytes # 0.6 H Eosinophils # 0.0 Basophils # 0.0 Sodium 137 Potassium 4.3 Chloride 104 Carbon Dioxide 32 H Anion Gap 5 L BUN 6 L Creatinine 0.73 Estimated GFR (MDRD) Greater than 90 Glucose 146 H Calcium 8.6 Surgery Progress Note: A/P - Problem (1) Crohn's disease involving terminal ileum Current Visit: Yes Code(s): K50.90 - CROHN'S DISEASE, UNSPECIFIED, WITHOUT COMPLICATIONS Status: Acute Assessment and Plan: Full liquids for dinner if doing well. Potentially home tomorrow
[2017-12-02] MEDS: Famotidine/PF 20 mg/2ml Vial SLOW IVP SCH (16:33)
[2017-12-02] MEDS: Pantoprazole 40 MG VIAL IVP SCH (21:29)
[2017-12-02] MEDS: Enoxaparin Sodium 40 MG/0.4 ML SYRINGE SC SCH (21:35)
[2017-12-03] MEDS: Hydrocortisone Sod Succ/PF 100 mg/2 ml Vial IVP SCH ×3 (06:11→19:59)
--- NOTE | 2017-12-03 07:33 | PDOC.GSPN ---
Surgery Progress Note: Subj - Subjective Narrative: Tolerated the full liquids but more bloated today Surgery Progress Note: Obj - Vital signs Vital signs: Vital Signs - Most Recent Temp Pulse Resp BP Pulse Ox 97.5 F L 56 L 16 110/72 97 12/03/17 04:00 12/03/17 04:00 12/03/17 04:00 12/03/17 04:00 12/03/17 04:00 - Physical Exam General: no distress Cardiovascular: regular rate and rhythm Abdomen: soft, positive bowel sounds, appropriately tender, distended (minimal) Surgery Progress Note: Results - Labs Result Diagrams: 12/02/17 03:41 12/02/17 03:41 Surgery Progress Note: A/P - Problem (1) Crohn's disease involving terminal ileum Current Visit: Yes Code(s): K50.90 - CROHN'S DISEASE, UNSPECIFIED, WITHOUT COMPLICATIONS Status: Acute Assessment and Plan: POD 2. Continue full liquids. I suspect he'll be ready for dc tomorrow.
[2017-12-03] MEDS: Ketorolac Tromethamine 30 MG/ML VIAL IVP PRN (07:35)
[2017-12-03] MEDS: Famotidine 20 MG TAB PO SCH ×2 (08:46→19:58)
[2017-12-03] MEDS: Enoxaparin Sodium 40 MG/0.4 ML SYRINGE SC SCH (19:58)
[2017-12-03] MEDS: Pantoprazole 40 MG VIAL IVP SCH (19:59)
[2017-12-04] MEDS: Hydrocortisone Sod Succ/PF 100 mg/2 ml Vial IVP SCH (05:48)
[2017-12-04] MEDS: Famotidine 20 MG TAB PO SCH (09:15)
[2017-12-04 12:40] VITALS: BP 133/79; TEMP 98.1
--- NOTE | 2017-12-04 12:58 | DIS ---
DISCHARGE DIAGNOSIS: Crohn's disease with stricture. PROCEDURES DURING ADMISSION: Laparoscopic robotic assisted right hemicolectomy. HOSPITAL COURSE: Patient was given a bowel prep, taken to the operating room where he underwent a la paroscopic robotic assisted right hemicolectomy. The patient did well. He is tolerating a diet. Irineo wels are functioning well. His pain is minimal. He is discharged home on hydrocodone and Zofran and follow up with Dr. Sloan in 2 weeks.
== END 2017-12-04 15:38 | disposition home or self-care (01) | DRG 330 ==
LOC: SURG A 12-01 11:28 → SJJU 12-01 17:18
PROVIDERS: ADMIT Surgery; ATTEND Surgery
PROC: 0DBF4ZZ Excision of Right Large Intestine, Percutaneous Endoscopic Approach (ICD-10-PCS; principal; 2017-12-01)
PROC: 8E0W4CZ Robotic Assisted Procedure of Trunk Region, Percutaneous Endoscopic Approach (ICD-10-PCS; 2017-12-01)
DX: K50.812 Crohn's disease of both small and large intestine with intestinal obstruction (principal); R63.4 Abnormal weight loss; Z68.1 Body mass index [BMI] 19.9 or less, adult
CPT/HCPCS: 36415; 36416; 80048; 85025; 88307; A4216; C9113; J0131; J0670; J0694; J1100; J1650; J1720; J1885; J2001; J2175; J2250; J2704; J3010; J7050; Q0162

== ENCOUNTER 2018-07-13 18:20 | Inpatient (IN) | payer BC ==
[2018-07-13] MEDS ORDERED: Ondansetron PF 4 MG/2 ML Vial SLOW IVP PRN (20:07)
[2018-07-13] MEDS ORDERED: Acetaminophen 325 MG TAB PO PRN ×2 (20:08→20:40)
[2018-07-13] MEDS: Dextrose 5 % And 0.9 % NaCl 1,000 ML IV SCH (20:29)
[2018-07-13 20:40] VITALS: BMI 16.0
[2018-07-13 21:23] LABS: #Eosinphils 0.2 thou/uL (0.0-0.7); #Lymphocytes 0.6 thou/uL (1.20-3.40); #Monocytes 0.3 thou/uL (0.11-0.59); #Neutrophils 8.3 thou/uL (1.40-6.50); %Basophils 0.1 % (0.0-1.0); %Eosinophils 1.9 % (0.0-10.0); %Lymphocytes 6.5 % (21.0-51.0); %Monocytes 2.8 % (0.0-10.0); %Neutrophils 88.8 % (42.0-75.0); Hemoglobin 10.5 g/dL (14.0-18.0); Mean Corpuscular HGB CONC 31.3 g/dL (32.0-36.0); Mean Corpuscular Hemoglobin 23.8 pg (27.0-31.0); Mean Platelet Volume 6.5 fL (7.4-10.4); Platelet Count 339 thou/uL (130-400); RBC Distribution Width 15.4 % (11.5-14.5); Red Blood Cell (RBC) Count 4.43 mill/uL (4.70-6.10); White Blood Cell (WBC) Count 9.3 thou/uL (4.8-10.8)
[2018-07-13 21:49] LABS: ALT (SGPT) 41 U/L (8-55); AST (SGOT) 17 U/L (5-34); Albumin 3.2 g/dL (3.5-5.0); Alkaline Phosphatase 65 U/L (40-150); Anion Gap 9 mmol/L (10-20); BUN (Urea Nitrogen) 10 mg/dL (8.9-20.6); Bilirubin, Total 0.2 mg/dL (0.2-1.2); CRP (Inflammatory) 6.23 mg/dL (= or < 0.5); Calc. Creatinine Clearance 107 mL/min (70-130); Calcium 8.5 mg/dL (7.8-10.44); Carbon Dioxide 30 mmol/L (22-29); Chloride 101 mmol/L (98-107); Estimated GFR-MDRD Greater than 90; Glucose 118 mg/dL (70-105); Potassium 3.5 mmol/L (3.5-5.1); Protein, Total 6.2 g/dL (6.0-8.3); Sodium 136 mmol/L (136-145)
--- NOTE | 2018-07-14 04:04 | HP ---
PRIMARY CARE PHYSICIAN: The patient currently does not have a primary care physician. CHIEF COMPLAINT: Abdominal pain and Crohn's flare, not responding to current medications. HISTORY OF PRESENT ILLNESS: Mr. Silverman is a pleasant 23-year-old gentleman who has a history of Crohn's disease. He sees Dr. Post for treatment of this. He has been having problems with abdominal pain, usually after having a bowel movement as well as some diarrhea off and on. He has also had poor appetite and has lost 10 pounds in the last week. He attributes this to Crohn's disease flare. He had been taking Entyvio as well as IV steroids, and had not improved with this treatment and for this reason, Dr. Post is directly admitting him for further treatment. The patient denies having any sharon fevers or chills, but he has been feeling quite fatigued lately. He had some blood in his stools several days ago, but not recently, and generally he has been having 5 to 6 stools a day, and having some nausea, but no vomiting. The patient says that when he has the pain, he rates it about a 5 to 6/10. REVIEW OF SYSTEMS: All systems were reviewed and are negative except for that mentioned in the history of present illness. PAST MEDICAL HISTORY: Significant for Crohn's. PAST SURGICAL HISTORY: He has had a right hemicolectomy. ALLERGIES: NO KNOWN DRUG ALLERGIES. SOCIAL HISTORY: He is a nonsmoker. He occasionally drinks. He is single. FAMILY HISTORY: Significant for Crohn's disease in his both parents. MEDICATIONS: Include prednisone 40 mg daily as well as some iron supplements. PHYSICAL EXAMINATION: GENERAL: He is alert and oriented. He appears to be in no acute distress. He is well-developed, but he does appear thin for his height. VITAL SIGNS: His blood pressure was 135/90, heart rate 91, respiratory rate of 18, temperature is 98.4. HEENT: Pupils are equal, round, and reactive. Extraocular muscles are intact. His sclerae anicteric. Throat, there is no erythema. No exudates. NECK: No adenopathy. No bruits. RESPIRATORY: His lungs are clear to auscultation. There is no wheezing. No rales. No rhonchi. CARDIOVASCULAR: He had a normal S1 and S2. There is no S3 or S4. No murmurs, clicks, or rubs. ABDOMEN: Soft, nontender, and nondistended. Positive for bowel sounds. No rebound. No guarding. EXTREMITIES: There is no clubbing, cyanosis, or edema. NEUROLOGIC: The muscle strength is 5/5 in both his upper and lower extremities. Cranial nerves 2 through 12 are intact. SKIN AND INTEGUMENT: No skin changes. No rash. LABORATORY DATA: Currently, no lab results are to review, but we will be at least ordering a CBC and a chemistry panel. ASSESSMENT: This is a 23-year-old gentleman who was directly admitted for abdominal pain and a Crohn's flare. He will be placed on the medical floor, started on IV fluids as well as IV steroids. We will get some routine lab work and consult his auto winder for further recommendations. He will also be placed on deep venous thrombosis as well as gastrointestinal prophylaxis. Job ID: [id number]
[2018-07-14] MEDS: Dextrose 5 % And 0.9 % NaCl 1,000 ML IV SCH ×2 (04:22→16:01)
[2018-07-14 05:54] LABS: #Basophils 0.1 thou/uL (0.0-0.2); #Lymphocytes 0.5 thou/uL (1.20-3.40); #Monocytes 0.1 thou/uL (0.11-0.59); #Neutrophils 4.7 thou/uL (1.40-6.50); %Basophils 0.9 % (0.0-1.0); %Eosinophils 0.2 % (0.0-10.0); %Lymphocytes 10.2 % (21.0-51.0); %Monocytes 0.9 % (0.0-10.0); %Neutrophils 87.7 % (42.0-75.0); Hemoglobin 10.8 g/dL (14.0-18.0); Mean Corpuscular HGB CONC 30.4 g/dL (32.0-36.0); Mean Corpuscular Hemoglobin 23.4 pg (27.0-31.0); Mean Corpuscular Volume 76.8 fL (78.0-98.0); Mean Platelet Volume 6.8 fL (7.4-10.4); Platelet Count 390 thou/uL (130-400); RBC Distribution Width 15.4 % (11.5-14.5); Red Blood Cell (RBC) Count 4.64 mill/uL (4.70-6.10); White Blood Cell (WBC) Count 5.3 thou/uL (4.8-10.8)
[2018-07-14] MEDS: Enoxaparin Sodium 40 MG/0.4 ML SYRINGE SC SCH (08:00)
--- NOTE | 2018-07-14 17:03 | PDOC.PN ---
- Subjective Encounter Start Date: 07/14/18 Encounter Start Time: 13:15 Mr. Silverman was seen today in follow-up of Crohn's disease flare. He says he feels a little better this morning, less pain and nausea. - Objective Resuscitation Status - Order Detail: 07/13/18 20:34 Resuscitation Status Routine Resuscitation Status: FULL: Full Resuscitation MAR Reviewed: Yes Vital Signs & Weight: Vital Signs (12 hours) Temp Pulse Resp BP Pulse Ox 07/14/18 12:00 97.9 F 65 16 121/75 98 07/14/18 08:00 98 07/14/18 07:47 98.6 F 68 16 113/72 98 Weight Admit Weight 108 lb 11.006 oz Weight 108 lb 11.006 oz Result Diagrams: 07/14/18 05:21 07/13/18 21:15 Phys Exam - Physical Examination HEENT: PERRLA Respiratory: no wheezing, no rales, no rhonchi, clear to auscultation bilateral Cardiovascular: RRR, no significant murmur, no rub Gastrointestinal: soft, non-tender, no distention, positive bowel sounds Musculoskeletal: no edema Dx/Plan (1) Crohn's disease Code(s): K50.90 - CROHN'S DISEASE, UNSPECIFIED, WITHOUT COMPLICATIONS Status: Acute - Plan * Continue IV steroids, and IV hydration * Await further recommendations from GI.
--- NOTE | 2018-07-15 01:41 | CON ---
DATE OF CONSULTATION: 07/13/2018 TYPE OF CONSULTATION: GI. REASON FOR CONSULTATION: Crohn's disease. HISTORY OF PRESENT ILLNESS: Mr. Silverman was in the office today for his Crohn's disease. He is feeling worse. Over the past several weeks, he has had worsening symptoms and has been on and off steroid tapers for about the past 2 to 3 months. He followed up in the office today and noted that he was having worsening anorexia, worsening pain in the lower abdomen with eating. No fever, scant stool with no blood, but ongoing weight loss and malaise. He was initially diagnosed at about age 15 with perianal disease and terminal ileal disease and was willing to remission with Remicade, which he started in 2011, initially he had taken some Imuran, but it did not work very well. When he started to see me in 2013, he was doing well. In 2014, he had some breakthrough symptoms just about a week before his Remicade infusion. We changed him from every 8 weeks infusions to every 6 week infusions, which seemed to help. He had a colonoscopy in 2016, that showed active disease, stricture in the sigmoid colon, hypertrophied anal papillae, anal fissures and a strictured ileocecal valve. Prometheus testing was done and showed adequate drug levels of infliximab greater than 34th trough. There were no antibodies and the decision was made to move to another biologic with MRI that also showed partial obstruction in the terminal ileum. He was also placed on vitamin D supplementation. Ultimately, he was started on Entyvio in April of 2017. He was hospitalized and required IV steroids and had an elective resection of the ileal stricture as it showed significant dilation of bowel loops proximal to that. He did well for a time after that. He had worsening symptoms and a repeat colonoscopy performed in February, which showed active colonic disease with severe deep ulceration to the sigmoid colon and sigmoid stricturing. Pathology showed no dysplasia, at that time an Entyvio level was drawn; there was no antibody, but the level was borderline at 11.9 in the trough, and the decision was made to move him to monthly dosing. I discussed this case with doctors in [place], talked about the option to move to [place] versus surgical therapy if the increased dose of Entyvio did not work. At first, his sed rate and CRP seemed to drop; however, now his weight has continued to drop, it is 120 in August of this year and has presently gotten down to 109. We have talked with him and his mother in the office on the day of the admission about him not being able to eat much, ongoing weight loss. She brought the issue of surgery again and I informed her that I am concerned that this would result in a permanent colostomy or ileostomy, but that he has failed 2 medications now. We will go ahead and place him in the hospital now and start on IV steroids if we can get everything calmed down, rule out infection and proceed with an endoscopy to see where we are. We may need the images of the abdomen as well. In the meantime, she is going to talk with her olap developer in do that in [place]. REVIEW OF SYSTEMS: Negative for fever, chills, rashes, malaise or arthralgias. Negative for perianal discharge or drainage. Negative for shortness of breath or cough. PAST MEDICAL/SURGICAL HISTORY: Ileal resection, coloscopies, iron deficiency, iron-deficiency anemia, and Crohn's disease. SOCIAL HISTORY: Negative for alcohol, drugs, or tobacco use. 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 Does not smoke. FAMILY HISTORY: Father had Crohn's disease and mother had celiac sprue and ulcerative colitis and had a colectomy. MEDICATIONS: 1. Iron sulfate. 2. Prednisone 40 mg daily. 3. Entyvio. 4. Vitamin D. PHYSICAL EXAMINATION: VITAL SIGNS: Pulse 96, blood pressure 124/72, weight 109 and temperature is 98. GENERAL: The patient is a very thin, cachectic appearing. HEENT: Oropharynx, no lesions or ulcers. Hair is within normal limits. NECK: Supple. No adenopathy. LUNGS: Clear. HEART: Regular rate and rhythm. No rubs, gallops, or murmurs. ABDOMEN: Soft. There is mild tenderness in the lower abdomen. The abdomen is boggy, but there is no rebound or guarding. He has a perianal skin tag. RECTAL: He would not permit rectal examination. He has history of anal stenosis and no evidence of perianal lesions or drainage. EXTREMITIES: No clubbing, cyanosis, or edema. SKIN: Without rashes or lesions. ASSESSMENT: Crohn, failing medical therapy. PLAN: Admission in the hospital for IV steroids, possible TPN and further studies. This was discussed with the hospitalist. Job ID: [id number]
[2018-07-15] MEDS: Dextrose 5 % And 0.9 % NaCl 1,000 ML IV SCH ×2 (02:07→13:25)
[2018-07-15 07:05] LABS: Anion Gap 8 mmol/L (10-20); BUN (Urea Nitrogen) 6 mg/dL (8.9-20.6); Calc. Creatinine Clearance 131 mL/min (70-130); Calcium 8.5 mg/dL (7.8-10.44); Carbon Dioxide 25 mmol/L (22-29); Chloride 108 mmol/L (98-107); Estimated GFR-MDRD Greater than 90; Glucose 145 mg/dL (70-105); Phosphorus 3.3 mg/dL (2.3-4.7); Sodium 137 mmol/L (136-145)
[2018-07-15] MEDS: Enoxaparin Sodium 40 MG/0.4 ML SYRINGE SC SCH (09:36)
--- NOTE | 2018-07-15 10:46 | PDOC.PN ---
- Subjective Encounter Start Date: 07/15/18 Encounter Start Time: 10:44 Mr. Silverman is feeling better today. He says the abdominal pain has improved. He has not had any nausea. - Objective Resuscitation Status - Order Detail: 07/13/18 20:34 Resuscitation Status Routine Resuscitation Status: FULL: Full Resuscitation MAR Reviewed: Yes Vital Signs & Weight: Vital Signs (12 hours) Temp Pulse Resp BP Pulse Ox 07/15/18 08:00 97 07/15/18 07:51 97.7 F 69 16 118/78 97 Weight Admit Weight 108 lb 11.006 oz Weight 108 lb 11.006 oz I&O: 07/14/18 07/15/18 07/16/18 06:59 06:59 06:59 Intake Total 3150 Balance 3150 Result Diagrams: 07/14/18 05:21 07/15/18 05:50 Phys Exam - Physical Examination HEENT: PERRLA Respiratory: no wheezing, no rales, no rhonchi, clear to auscultation bilateral Cardiovascular: RRR, no significant murmur, no rub Gastrointestinal: soft, non-tender, no distention, positive bowel sounds Musculoskeletal: no edema Dx/Plan (1) Crohn's disease Code(s): K50.90 - CROHN'S DISEASE, UNSPECIFIED, WITHOUT COMPLICATIONS Status: Acute (2) Protein-calorie malnutrition, moderate Code(s): E44.0 - MODERATE PROTEIN-CALORIE MALNUTRITION Status: Chronic - Plan * Crohn's Disease flare- improving with IV steroids * Will continue, and IV fluids, . * Protein calorie malnutrition- his diet has been advanced, and encourage nutritional supplementation PRN
[2018-07-15 16:48] LABS: Ref Lab Test Ordered TPMT ENZ; Reference Lab Name PROMETHEUS
[2018-07-15] MEDS ORDERED: Ergocalciferol 1.25 MG(50,000 UNITS) CAP PO SCH (18:30)
[2018-07-15] MEDS ORDERED: Iron, Sodium Ferric Gluconate 250 MG in Sodium Chloride 0.9% 100 ML IVPB SCH (18:30)
--- NOTE | 2018-07-15 18:32 | PRG ---
DATE OF SERVICE: 07/14/2018 SUBJECTIVE: Mr. Silverman feels a little better today. Since starting IV steroids, he has wanted to move to a low residue diet. No fever. No chills. He is urinating. OBJECTIVE: VITAL SIGNS: Temperature 97, pulse 69, and blood pressure 126/77. ABDOMEN: Scaphoid abdomen, nontender. No palpable masses or rebound. SKIN: No rashes or lesions. He has muscle wasting. LABORATORY DATA: White count 5.3, hemoglobin 10, MCV 76, and platelet count 390. Electrolytes were normal yesterday with CRP of 6.23, albumin of 3.2, and protein 6.2. Normal AST, ALT, and alkaline phosphatase. ASSESSMENT: Crohn's disease for about 10 years. He responded initially to Remicade, but then lost response with decreased dose interval and regained it, but then lost response again and drug level showed adequate level of Remicade and no antibodies, trough and therefore decision was made to move off TNFs to [facility], he has really never come under control in fact he has had one surgery for an ileal stricture and partial obstruction, then on and off steroids now, then with failure to thrive, further weight loss, anorexia, elevated CRP and sed rate. He has benign abdomen, but he is not improving. PLAN: 1. IV steroids. 2. IV fluids. 3. May be reason to give him some IV iron and/or bisphosphonate as he has been on steroids for some time to treat the complications of his inflammatory bowel disease, his iron deficiency anemia, and he has a significant risk for osteoporosis and osteopenia. 4. We will check his vitamin D, which he has been on in the outpatient setting of his magnesium and phosphorus. 5. As far as options for treatment at this time, we are going to check TPMT metabolites and start him empirically on some 6-MP. He had been on that in the past when he was young, but he did not recall having a bad reaction, but states it just did not work. I talked with his mother and him about options of transfer to a tertiary center for possible salvage therapy with cyclosporine versus surgical therapy versus trial of moving to [facility]. He has a significant perianal disease and therefore I think that colectomy and J-pouch are probably not an option. His mother asked about this as she has had ulcerative colitis and had good therapy with that subsequently was diagnosed with some Crohn's, but has been managed with medications. We offered referral to [facility] in [place] for evaluation by with Colorectal surgeons but they are leaning more towards [place] where the family now lives. We will see how he does over the next day or 2 with IV steroids. May consider the flexible sigmoidoscopy to reevaluate the area. We will send studies for CMB, histoplasmosis, make sure we are not dealing with infectious disease. Job ID: [id number]
[2018-07-16] MEDS: Dextrose 5 % And 0.9 % NaCl 1,000 ML IV SCH ×4 (00:02→17:44)
[2018-07-16] MEDS: Enoxaparin Sodium 40 MG/0.4 ML SYRINGE SC SCH (09:07)
--- NOTE | 2018-07-16 10:50 | PRG ---
DATE OF SERVICE: 07/15/2018 SUBJECTIVE: Mr. Silverman feels about the same as yesterday. His appetite is better. He still has some left lower quadrant pain before defecation. He has had no rectal bleeding. No fever or chills. No distention. OBJECTIVE: VITAL SIGNS: Temperature 97.7, pulse 68, and blood pressure 118/78. HEENT: Oropharynx without lesions. NECK: Supple. No lymphadenopathy. LUNGS: Clear. HEART: Regular rate and rhythm. No rubs, gallops, or murmurs. ABDOMEN: Soft, nontender. REVIEW OF SYSTEMS: The patient has no new ulcers, erosions, fever, chills, fractures. LABORATORY DATA: White count 5.3, hemoglobin 10.8, MCV 76, platelet count 390. Sodium 137, potassium 4, BUN and creatinine are 6 and 0.61. Calcium is 8.5, phosphorus 3.3, magnesium 2.0. Vitamin D25-OH is 9.6. TPMT phenotype pending to see whether or not it is safe to continue the immunomodulator. PLAN: 1. IV iron. 2. Oral vitamin D 25,000 units every week. 3. Continue IV steroids. 4. Continue diet. 5. We planned for flexible sigmoidoscopy to evaluate extensive disease. I think if he is not having any response to the Entyvio, we should move to try Stelara. At present, we will keep him on immunomodulator. If endoscopy got limited disease in the sigmoid colon, we consider surgical resection; however, he has had history of perianal disease and very significant left sided colon disease, I am not sure a simple sigmoid resection is the answer to this patient's problem. Job ID: [id number]
[2018-07-16] MEDS ORDERED: GoLYTELY 4,000 ml Bottle PO SCH (14:30)
--- NOTE | 2018-07-16 15:29 | PDOC.PN ---
- Subjective Encounter Start Date: 07/16/18 Encounter Start Time: 15:28 Mr. Silverman was seen today in follow-up of Crohn's disease. He says he had a little more pain today after eating. He also noted some blood in his stool as well. - Objective Resuscitation Status - Order Detail: 07/13/18 20:34 Resuscitation Status Routine Resuscitation Status: FULL: Full Resuscitation MAR Reviewed: Yes Vital Signs & Weight: Vital Signs (12 hours) Temp Pulse Resp BP Pulse Ox 07/16/18 08:19 97.7 F 56 L 16 136/80 100 07/16/18 08:00 100 Weight Admit Weight 108 lb 11.006 oz Weight 108 lb 11.006 oz I&O: 07/15/18 07/16/18 07/17/18 06:59 06:59 06:59 Intake Total 3150 4750 Balance 3150 4750 Result Diagrams: 07/14/18 05:21 07/15/18 05:50 Phys Exam - Physical Examination HEENT: PERRLA Respiratory: no wheezing, no rales, no rhonchi, clear to auscultation bilateral Cardiovascular: RRR, no significant murmur, no rub Gastrointestinal: soft, non-tender, no distention, positive bowel sounds Musculoskeletal: no edema Dx/Plan (1) Crohn's disease Code(s): K50.90 - CROHN'S DISEASE, UNSPECIFIED, WITHOUT COMPLICATIONS Status: Acute (2) Protein-calorie malnutrition, moderate Code(s): E44.0 - MODERATE PROTEIN-CALORIE MALNUTRITION Status: Chronic - Plan * Crohn's disease flare- plan is for Flex sig tomorrow * Continue IV steroids, Mercaptopurine * He has also received IV iron and Vitamin D supplementation.
--- NOTE | 2018-07-16 15:41 | PRG ---
DATE OF SERVICE: SUBJECTIVE: Mr. Kolb feels about the way he did yesterday. he is about 50% improved from admission. He is tolerating a soft diet. OBJECTIVE: VITAL SIGNS: Temperature 97, pulse 66, and blood pressure 136/80. LUNGS: Clear. HEART: Regular rate and rhythm. ABDOMEN: Soft, nontender. LABORATORY DATA: None today. ASSESSMENT: 1. Crohn colitis, severe, mostly left sided with some stricturing in the sigmoid. 2. Previous ileal resection. 3. Failure of Remicade, now on Entyvio q. 4 weeks. 4. Failure to thrive with continued weight loss. PLAN: 1. Continue IV steroids. 2. Await CMV HSV. 3. Flexible sigmoidoscopy any response to increased Entyvio dose. If not, options will include surgery or changing to Stelara. 4. Vitamin D has been replaced. 5. IV iron has been given. Job ID: [id number]
[2018-07-17] MEDS: Dextrose 5 % And 0.9 % NaCl 1,000 ML IV SCH ×2 (04:21→17:20)
[2018-07-17] MEDS: Enoxaparin Sodium 40 MG/0.4 ML SYRINGE SC SCH (10:16)
[2018-07-17] MEDS ORDERED: PROPOFOL 200 MG/20 ML VIAL ONE (13:23)
[2018-07-17] MEDS ORDERED: Promethazine HCl 25 MG/ML VIAL IM PRN (14:39)
[2018-07-17] MEDS ORDERED: Promethazine HCl 25 MG/ML VIAL SLOW IVP PRN (14:39)
[2018-07-17] MEDS ORDERED: Ondansetron HCl/PF 4 MG/2 ML Vial IVP PRN (14:39)
--- NOTE | 2018-07-17 17:23 | PDOC.PN ---
- Subjective Encounter Start Date: 07/17/18 Encounter Start Time: 15:15 Mr. Silverman was seen today in follow-up of Crohn's disease flare. He says he is feeling a little better. - Objective Resuscitation Status - Order Detail: 07/13/18 20:34 Resuscitation Status Routine Resuscitation Status: FULL: Full Resuscitation MAR Reviewed: Yes Vital Signs & Weight: Vital Signs (12 hours) Temp Pulse Resp BP BP Pulse Ox 07/17/18 16:00 97.4 F L 48 L 16 138/82 100 07/17/18 15:40 97.4 F L 49 L 18 140/80 100 07/17/18 12:00 98.0 F 57 L 16 142/83 H 98 07/17/18 08:00 98.0 F 55 L 16 138/79 97 Weight Admit Weight 108 lb 11.006 oz Weight 108 lb 11.006 oz I&O: 07/16/18 07/17/18 07/18/18 06:59 06:59 06:59 Intake Total 4750 3500 Balance 4750 3500 Result Diagrams: 07/14/18 05:21 07/15/18 05:50 Phys Exam - Physical Examination HEENT: PERRLA Respiratory: no wheezing, no rales, no rhonchi, clear to auscultation bilateral Cardiovascular: RRR, no significant murmur, no rub Gastrointestinal: soft, non-tender, no distention, positive bowel sounds Musculoskeletal: no edema, pulses present Dx/Plan (1) Crohn's disease Code(s): K50.90 - CROHN'S DISEASE, UNSPECIFIED, WITHOUT COMPLICATIONS Status: Acute (2) Protein-calorie malnutrition, moderate Code(s): E44.0 - MODERATE PROTEIN-CALORIE MALNUTRITION Status: Chronic - Plan * Crohn's disease flare- Colonoscopy results were noted * Further recommendations per Gastroenterology.
[2018-07-18] MEDS: Dextrose 5 % And 0.9 % NaCl 1,000 ML IV SCH (03:14)
[2018-07-18 06:30] LABS: Anion Gap 11 mmol/L (10-20); BUN (Urea Nitrogen) 7 mg/dL (8.9-20.6); CRP (Inflammatory) Less than 0.50 mg/dL (= or < 0.5); Calc. Creatinine Clearance 129 mL/min (70-130); Calcium 8.7 mg/dL (7.8-10.44); Carbon Dioxide 28 mmol/L (22-29); Chloride 104 mmol/L (98-107); Estimated GFR-MDRD Greater than 90; Glucose 104 mg/dL (70-105); Potassium 3.7 mmol/L (3.5-5.1); Sodium 139 mmol/L (136-145)
[2018-07-18 06:55] LABS: #Lymphocytes 0.7 thou/uL (1.20-3.40); #Monocytes 0.5 thou/uL (0.11-0.59); #Neutrophils 9.8 thou/uL (1.40-6.50); %Basophils 0.1 % (0.0-1.0); %Lymphocytes 6.2 % (21.0-51.0); %Monocytes 4.4 % (0.0-10.0); %Neutrophils 89.2 % (42.0-75.0); Hemoglobin 10.8 g/dL (14.0-18.0); Mean Corpuscular HGB CONC 29.5 g/dL (32.0-36.0); Mean Platelet Volume 7.4 fL (7.4-10.4); Platelet Count 380 thou/uL (130-400); RBC Distribution Width 15.2 % (11.5-14.5); Red Blood Cell (RBC) Count 4.71 mill/uL (4.70-6.10)
[2018-07-18] MEDS: Enoxaparin Sodium 40 MG/0.4 ML SYRINGE SC SCH (09:07)
--- NOTE | 2018-07-18 11:51 | PRG ---
DATE OF SERVICE: 07/18/2018 TYPE OF REPORT: GI INPATIENT DAILY PROGRESS NOTE. SUBJECTIVE: Erik is feeling pretty good today. He is not having any abdominal pain. He is tolerating his low residue diet. No bowel movement since procedure yesterday. He is feeling ready to go home. OBJECTIVE: VITAL SIGNS: Temperature 98.1, pulse 54, blood pressure 125/84, and 100% oxygen saturation on room air. GENERAL: No acute distress. HEART: Regular rate and rhythm. LUNGS: Clear to auscultation bilaterally. ABDOMEN: Soft, nontender to palpation. EXTREMITIES: No peripheral edema. LABORATORY STUDIES: CMV PCR is pending. Urine histoplasma antigen is negative. Sodium 139, potassium 3.7, BUN 7, creatinine 0.62. CRP normalized down to less than 0.5. ESR is 20. WBC 11.0, hemoglobin 10.8, and platelets 380. Results of ileal and colon biopsies were all pending. ASSESSMENT AND PLAN: 1. Crohn's colitis, severe with some stricturing in the sigmoid colon. 2. Failure to thrive. Erik is doing pretty well this morning and ready for hospital discharge. I would recommend discharging him back on prednisone 40 mg daily and continuing the low residue diet. He will follow up with Dr. Post closely as an outpatient, once biopsy results are back. It is my understanding that Dr. Post is considering switching his biologic agent at some point in the near future. He is okay for discharge home from a GI perspective. Please call back at anytime with questions or concerns. Job ID: [id number]
--- NOTE | 2018-07-18 13:11 | PDOC.PN ---
- Subjective Encounter Start Date: 07/18/18 Encounter Start Time: 13:08 Mr. Silverman was seen today in follow-up of Crohn's disease flare. He is feeling better, tolerating p.o. - Objective Resuscitation Status - Order Detail: 07/13/18 20:34 Resuscitation Status Routine Resuscitation Status: FULL: Full Resuscitation MAR Reviewed: Yes Vital Signs & Weight: Vital Signs (12 hours) Temp Pulse Resp BP Pulse Ox 07/18/18 08:00 98.1 F 54 L 20 125/84 100 Weight Admit Weight 108 lb 11.006 oz Weight 108 lb 11.006 oz I&O: 07/17/18 07/18/18 07/19/18 06:59 06:59 06:59 Intake Total 3500 3751 240 Balance 3500 3751 240 Result Diagrams: 07/18/18 05:33 07/18/18 05:33 Phys Exam - Physical Examination Respiratory: no wheezing, no rales, no rhonchi, clear to auscultation bilateral Cardiovascular: RRR, no significant murmur, no rub Gastrointestinal: soft, non-tender, no distention, positive bowel sounds Musculoskeletal: no edema Dx/Plan (1) Crohn's disease Code(s): K50.90 - CROHN'S DISEASE, UNSPECIFIED, WITHOUT COMPLICATIONS Status: Acute (2) Protein-calorie malnutrition, moderate Code(s): E44.0 - MODERATE PROTEIN-CALORIE MALNUTRITION Status: Chronic - Plan * Crohn's disease flare- improved * He has been cleared for discharge home.
[2018-07-18 15:07] VITALS: BP 133/79; TEMP 98
--- NOTE | 2018-07-18 16:24 | DIS ---
DATE OF ADMISSION: 07/13/2018 DATE OF DISCHARGE: 07/18/2018 DISCHARGE DISPOSITION: Home. PRIMARY DISCHARGE DIAGNOSES: 1. Crohn disease flare. 2. Moderate protein-calorie malnutrition. DISCHARGE MEDICATIONS: Include; 1. Prednisone 40 mg p.o. daily. 2. Mercaptopurine 50 mg daily. 3. Iron sulfate 325 mg daily. PROCEDURES DONE DURING ADMISSION: The patient had a colonoscopy, in which there were several colonic strictures noted and ulcer. Biopsies were taken and are pending at the time of discharge. CODE STATUS: Full code. ALLERGIES: NO KNOWN DRUG ALLERGIES. HOSPITAL COURSE: Mr. Silverman is a pleasant 23-year-old gentleman, who was admitted due to abdominal pain which is increasing, poor oral intake and weight loss of 10 pounds in the last couple of weeks and bloody diarrhea. He was started on IV fluids as well as high-dose IV steroids and placed on mercaptopurine. His symptoms began to quiescent, and the plan was to possibly change him to a different biologic agent as an outpatient. A colonoscopy was done and the results as previously mentioned. He will be discharged home on 40 of prednisone as well as a mercaptopurine and follow up with Dr. Post as instructed. He is to call his office on Friday for followup instructions. Job ID: [id number]
--- NOTE | 2018-07-19 21:13 | OP ---
DATE OF PROCEDURE: 07/17/2018 PROCEDURE PERFORMED: Colonoscopy. PREPROCEDURE DIAGNOSES: History of Crohn disease for over 10 years, previous responsive to Remicade, then he antibody levels. Switched to Entyvio in April 2017. The ileal resection for stricture in the earlier part of 2017. Three months ago, he was increased to Entyvio q.4 weeks. He has failure to thrive, he was admitted to the hospital and goal of endoscopy is to evaluate disease activity. Findings are compared to endoscopies in late 2016 and February of 2018. POSTPROCEDURE DIAGNOSES: 1. Small fissure, anal canal, anterior, 5 mm to 1 cm ulcer in the rectal vault with normal surrounding mucosa. 2. Stricture in the sigmoid colon from 10 to 20 cm with irregular ulceration. Some component of granulation tissue in the base. 3. Intervening normal mucosa of 20 to 30 cm and a small stricture at 30 cm with ulceration, also biopsied. 4. Descending colon overall appears relatively normal with some areas of what appeared to be scarring from previous colitis, this was biopsied. The same appearance in the transverse colon, which was biopsied and there was a 1 cm ulcer in transverse colon, which was biopsied. 5. Anastomosis of stricturing ulceration, this was biopsied. Terminal ileum appeared relatively normal except for right at the anastomosis. Random biopsies obtained. ANESTHESIA: DESCRIPTION OF PROCEDURE: The patient . Rectal exam was performed revealing his anal fissure anteriorly. There was no evidence of perianal drainage or abscesses or fistulas. The anoscope was advanced into the anal canal and advanced through the colon to the terminal ileum. The terminal ileum appeared relatively normal with a few very small 1 to 2 mm erosions. The ileum was evaluated to about 30 cm from the anastomosis. Right at the anastomosis, there were stricturing and ulceration and then around this area based with some narrowing. Multiple biopsies were obtained to this area. The scope was withdrawn and actually the mucosa appeared fairly normal through the remainder of what appeared to be the transverse colon and the descending colon; however, there was an ulcer about a centimeter in size of raised margins irregular pattern in the transverse colon, this was biopsied for documentation and obtained for vascular label. Splenic flexure appeared fairly normal, was biopsied and seemed to be scarring in this area as well. There was a stricture encountered at 30 cm with some granulation tissue in the base of an ulcer, which was biopsied and then there was intervening normal mucosa and then a stricture from 20 to about 10 cm was identified with deep ulcerations, but again some appearance of granulation tissue in the base of these deep serpiginous ulcers. Multiple biopsies were taken in this area as well. The tightest area of the stricture at 10 cm had some effective dilatation from just passing the scope. There were no signs of perforation. Retroflexion was not performed. The scope was removed. The patient tolerated the procedure well without complications. RECOMMENDATIONS: 1. Await histopathology. 2. Check sedimentation rate, CRP tomorrow. 3. Await infectious markers. I think our options at this time are to continue the Entyvio and see if there is some slow improvement as there are some mucosal improvements in some areas, but for the most part, most of the ulceration looks very similar to the endoscopy in February of this year. It may be time to move to [facility] option. I think at this time I will try to hold off on surgery with his anal fissuring disease and anastomotic disease. He would likely undergo a full colectomy with ileostomy at this time and still would have a risk for recurrence of disease. Job ID: [id number]
[2018-07-21 18:10] LABS: CMV DNA-PCR Test Negative (Negative)
== END 2018-07-18 14:18 | disposition home or self-care (01) | DRG 386 ==
LOC: T4-B 19:33
PROVIDERS: ADMIT Internal Medicine; ATTEND Internal Medicine
PROC: 0DBM8ZX Excision of Descending Colon, Via Natural or Artificial Opening Endoscopic, Diagnostic (ICD-10-PCS; principal; 2018-07-17)
PROC: 0DBN8ZX Excision of Sigmoid Colon, Via Natural or Artificial Opening Endoscopic, Diagnostic (ICD-10-PCS; 2018-07-17)
PROC: 0DBL8ZX Excision of Transverse Colon, Via Natural or Artificial Opening Endoscopic, Diagnostic (ICD-10-PCS; 2018-07-17)
DX: K50.90 Crohn's disease, unspecified, without complications (principal); K63.3 Ulcer of intestine; E44.0 Moderate protein-calorie malnutrition; Z68.1 Body mass index [BMI] 19.9 or less, adult; R62.7 Adult failure to thrive; K60.2 Anal fissure, unspecified; D50.9 Iron deficiency anemia, unspecified; Z90.49 Acquired absence of other specified parts of digestive tract
CPT/HCPCS: 36415; 80048; 80053; 82306; 83735; 84100; 85025; 85652; 86140; 87385; 87497; 88305; 90471; 90686; G0008; J1650; J2405; J2704; J2916; J2920; J7042; J7050

== ENCOUNTER 2023-05-30 10:24 | Outpatient (CLI) | payer BC ==
[2023-05-30] MEDS ORDERED: Glucagon 1 MG/ML KIT ONE (11:44)
[2023-05-30] MEDS ORDERED: Magnevist 469MG/ML 20 ML VIAL ONE (14:27)
== END 2023-05-30 10:25 | disposition home or self-care (01) ==
LOC: MRI 10:24
PROVIDERS: ATTEND Internal Medicine Gastroenterology
DX: K50.119 Crohn's disease of large intestine with unspecified complications (principal); D50.9 Iron deficiency anemia, unspecified; E55.9 Vitamin D deficiency, unspecified; K50.00 Crohn's disease of small intestine without complications; E53.8 Deficiency of other specified B group vitamins; K82.8 Other specified diseases of gallbladder; K63.89 Other specified diseases of intestine
CPT/HCPCS: 74183; A9579; J1611